=== PATIENT | female | born 1955 ===

== ENCOUNTER 2018-03-02 08:15 | Inpatient (IN) | payer OTHER ==
[~2018-03-02] VITALS: Ht 160 cm; Wt 90.7 kg
[2018-03-02] MEDS ORDERED: GABAPENTIN300 MG PO (10:19)
[2018-03-02] MEDS ORDERED: GLIPIZIDE10 MG PO (10:20)
[2018-03-02] MEDS ORDERED: SERTRALINE HCL100 MG PO (10:20)
[2018-03-02] MEDS ORDERED: LISINOPRIL10 MG PO (10:20)
[2018-03-02] MEDS ORDERED: HUMULIN N100 UNIT/2 (10:21)
[2018-03-02] MEDS ORDERED: TOPROL XL50 M1 PO (10:21)
[2018-03-02] MEDS ORDERED: LANTUS SOL100 UNIT/1 (10:21)
[2018-03-02] MEDS ORDERED: MAXIMUM D310000 UNIT PO (10:22)
[2018-03-02] MEDS ORDERED: SIMVASTATIN40 MG PO (10:22)
[2018-03-02] MEDS ORDERED: PLAVIX75 MG PO (10:22)
[2018-03-02] MEDS ORDERED: PRESERVISION L1 EACH PO (10:23)
[2018-03-09] MEDS ORDERED: DOCUSATE SODIU100 MG PO (09:23)
[2018-03-09] MEDS ORDERED: PERCOCET 5-3251 EACH PO (09:24)
[2018-03-09] MEDS ORDERED: CLONAZEPAM1 MG PO (09:24)
== END 2018-03-09 17:34 | DRG 472 ==
LOC: O/R 03-08 05:45 → PED 03-08 05:45 → SURH 03-08 07:00 → PED 03-08 11:46
PROVIDERS: Orthopaedic Surgery Orthopaedic Surgery of the Spine
PROC: 0RG20A0 Fusion of 2 or more Cervical Vertebral Joints with Interbody Fusion Device, Anterior Approach, Anterior Column, Open Approach (ICD-10-PCS; 2018-03-08)
PROC: 0RT30ZZ Resection of Cervical Vertebral Disc, Open Approach (ICD-10-PCS; principal; 2018-03-08 07:00)
DX: M47.12 Other spondylosis with myelopathy, cervical region (principal); M50.022 Cervical disc disorder at C5-C6 level with myelopathy; E03.8 Other specified hypothyroidism; I10 Essential (primary) hypertension